=== PATIENT | male | born 1995 | race Caucasian/White ===

== ENCOUNTER 2017-08-04 12:21 | Emergency (ER) | payer MEDICAID ==
[2017-08-04 13:08] VITALS: BP 156/93
[2017-08-04] MEDS ORDERED: Benzocaine 20% Topical Spray UD MUCMEM ONE (13:14)
[2017-08-04] MEDS ORDERED: Lidocaine 2% Viscous Solution 15 ML Cup PO ONE (13:14)
--- NOTE | 2017-08-04 13:19 | EDM.PDOC ---
ED HPI GENERAL MEDICAL PROBLEM - General Chief Complaint: ENT Problem Stated Complaint: ORAL ISSUES Time Seen by Provider: 08/04/17 12:22 Source of Information: Reports: Patient History Limitations: Reports: No Limitations - History of Present Illness INITIAL COMMENTS - FREE TEXT/NARRATIVE: HISTORY AND PHYSICAL: History of present illness: Patient is a 22-year-old male who presents to the emergency room today with complaints of right lower dental pain. He did have a broken tooth approximately one and half years ago and he does occasionally chew wrong which causes increased pain and swelling. Yesterday he was eating something hard chewing on his right side and had increased pain, swelling to the lower gumline. Denies any fever, chills, chest pain, shortness of breath or cough. Denies any abdominal pain, nausea, vomiting, diarrhea or constipation. Review of systems: As per history of present illness and below otherwise all systems reviewed and negative. Past medical history: As per history of present illness and as reviewed below otherwise noncontributory. Surgical history: As per history of present illness and as reviewed below otherwise noncontributory. Social history: No reported history of drug or alcohol abuse. Family history: As per history of present illness and as reviewed below otherwise noncontributory. Physical exam: General: Well-nourished 22-year-old male. Alert and oriented. Nontoxic appearing and in no acute distress. HEENT: Atraumatic, normocephalic, pupils equal and reactive bilaterally, negative for conjunctival pallor or scleral icterus, mucous membranes moist, throat clear, multiple dental caries are noted with poor dental hygiene, #30 and 31. To have severe decay with contused, no nerve root noted. His neck supple , nontender, trachea midline. No drooling or trismus noted. No meningeal signs. No mastoid or temporal tenderness with palpation. Lungs: Clear to auscultation, breath sounds equal bilaterally, chest nontender. Heart: S1S2, regular rate and rhythm without overt murmur Abdomen: Soft, nondistended, nontender. Negative for masses or hepatosplenomegaly. Negative for costovertebral tenderness. Pelvis: Stable nontender. Genitourinary: Deferred. Rectal: Deferred. Skin: Intact, warm, dry. No lesions or rashes noted. Extremities: Atraumatic, negative for cords or calf pain. Neurovascular unremarkable. Neuro: Awake, alert, oriented. Cranial nerves II through XII unremarkable. Cerebellum unremarkable. Motor and sensory unremarkable throughout. Exam nonfocal. Notes: Did discuss with patient that it may be an early abscess and due to his severe dental decay and hygiene I will place him on Pen-Vee K and give him a limited amount of tramadol. We discussed in length the necessity of following up with the or definitive care. He states his understanding and is agreeable to plan of care. Denies any further questions at this time. Diagnostics: [] Therapeutics: Tooth Balls Impression: Broken Tooth Dental decay Plan: 1. Please take your medications as prescribed. 2. Tylenol and/or ibuprofen as needed for pain management. Please take the tramadol for nighttime use as this may cause drowsiness. Do not take while driving or needing to be functioning outside of the house. 3. Follow-up with a dentist for definitive care. Return to the ED as needed and as discussed. Definitive disposition and diagnosis as appropriate pending reevaluation and review of above. Duration: Day(s):, Chronic right lower Pain Score (Numeric/FACES): 6 - Related Data Allergies Allergy/AdvReac Type Severity Reaction Status Date / Time No Known Allergies Allergy Verified 08/04/17 13:06 Home Meds: Home Meds . [No Known Home Meds] 08/04/17 [History] Past Medical History Gastrointestinal History: Reports: Other (See Below) Other Gastrointestinal History: has hernia now - Past Surgical History Other Musculoskeletal Surgeries/Procedures:: elbow surgery Social & Family History - Family History Family Medical History: Noncontributory - Tobacco Use Smoking Status *Q: Never Smoker - Caffeine Use Caffeine Use: Reports: Soda - Recreational Drug Use Recreational Drug Use: No ED ROS ENT - Review of Systems Review Of Systems: ROS reveals no pertinent complaints other than HPI. ED EXAM, ENT - Physical Exam Exam: See Below (See dictation) Course - Vital Signs Last Recorded V/S: Last Vital Signs Temp 97.6 F 08/04/17 13:06 Pulse 70 08/04/17 13:06 Resp 20 08/04/17 13:06 BP 156/93 H 08/04/17 13:06 Pulse Ox 99 08/04/17 13:06 - Orders/Labs/Meds Meds: Medications Discontinued Medications Generic Name Dose Route Start Last Admin Trade Name Freq PRN Reason Stop Dose Admin Benzocaine 2 each 08/04/17 13:14 Hurricaine One 20% MUCMEM 08/04/17 13:15 ONETIME ONE Lidocaine HCl 15 ml 08/04/17 13:14 Xylocaine 2% Viscous PO 08/04/17 13:15 ONETIME ONE Departure - Departure Time of Disposition: 13:20 Disposition: Home, Self-Care 01 Clinical Impression: Dental caries Broken tooth Qualifiers: Encounter type: initial encounter Fracture type: closed Qualified Code(s): S02.5XXA - Fracture of tooth (traumatic), initial encounter for closed fracture - Discharge Information Instructions: Dental Caries, Pediatric, Tooth Injuries, [id number] Referrals: PCP,None [Primary Care Provider] - Forms: ED Department Discharge Additional Instructions: The following information is given to patients seen in the emergency department who are being discharged to home. This information is to outline your options for follow-up care. We provide all patients seen in our emergency department with a follow-up referral. The need for follow-up, as well as the timing and circumstances, are variable depending upon the specifics of your emergency department visit. If you don't have a primary care physician on staff, we will provide you with a referral. We always advise you to contact your personal physician following an emergency department visit to inform them of the circumstance of the visit and for follow-up with them and/or the need for any referrals to a consulting specialist. The emergency department will also refer you to a specialist when appropriate. This referral assures that you have the opportunity for follow-up care with a specialist. All of these measure are taken in an effort to provide you with optimal care, which includes your follow-up. Under all circumstances we always encourage you to contact your private physician who remains a resource for coordinating your care. When calling for follow-up care, please make the office aware that this follow-up is from your recent emergency room visit. If for any reason you are refused follow-up, please contact the [facility] Emergency Department at and asked to speak to the emergency department charge nurse. [facility] [address] [place] [id number] 1. Please take your medications as prescribed. 2. Tylenol and/or ibuprofen as needed for pain management. Please take the tramadol for nighttime use as this may cause drowsiness. Do not take while driving or needing to be functioning outside of the house. 3. Follow-up with a dentist for definitive care. Return to the ED as needed and as discussed.
== END 2017-08-04 13:30 | disposition home or self-care (01) ==
LOC: MW.ED 12:21
DX: K03.81 Cracked tooth (principal); K02.9 Dental caries, unspecified
CPT/HCPCS: 99282; A9270; 99283